=== PATIENT | male | born 1995 | race African-American/Black ===

== ENCOUNTER 2018-12-08 12:18 | Emergency (ER) | payer OTHER, SELFPAY ==
[2018-12-08] MEDS ORDERED: FENTANYL CITR 100 MCG/2 ML ONE (13:07)
[2018-12-08] MEDS ORDERED: ONDANSETRON 4 MG/2 ML VIAL ONE (13:07)
[2018-12-08] MEDS ORDERED: NA CHLORIDE 0.9% 1,000 ML ONE (13:07)
[2018-12-08 13:27] LABS: Basophils % 0.2 % (0-1.3); Hematocrit 44.6 % (39.6-49.0); Lymphocytes % 7.1 % (15.3-44.8); MPV 8.8 fL (7.6-11.3); RBC Red Blood Cell Count 5.12 M/uL (4.33-5.43)
--- NOTE | 2018-12-08 13:41 | RAD REPORT ---
EXAM DESCRIPTION: CT - Stone Protocol - 12/08/2018 1:24 pm CLINICAL HISTORY: Flank pain. ABD PAIN COMPARISON: No comparisons TECHNIQUE: Axial images were obtained without oral or IV contrast. Lack of contrast limits solid org an and vascular assessment. The [id number] spans the entirety of the system partially obscuring uppermost abdomen and lung bases. Coronal reformatted images were obtained and reviewed. All CT scans are performed using dose optimization technique as appropriate and may include automated exposure control or mA/KV adjustment according to patient size. FINDINGS: Small anterior left pneumothorax and a small amount of pneumomediastinum is seen surroundi ng the posterior mediastinum. Etiology for this finding is unclear on this study. Imaged portions of the liver and spleen show no suspicious findings on non-contrast imaging. The panc reas and adrenal glands are normal. No pathologic lymphadenopathy in the abdomen or pelvis. No urinary tract stones or obstructive uropathy. No bowel obstruction, free air, free fluid or abscess. Normal appendix noted. No significant bony abnormality. IMPRESSION: Small amount anterior left pneumothorax and posteriorly pneumomediastinum is present, et iology unclear on this abdominal CT study. Consider chest CT correlation. No acute intra- abdominal or intrapelvic abnormality detected.
[2018-12-08 13:53] LABS: ALT/SGPT 41 U/L (12-78); AST/SGOT 117 U/L (15-37); Albumin 4.6 g/dL (3.4-5.0); Alkaline Phosphatase 90 U/L (45-117); BUN Blood Urea Nitrogen 12 mg/dL (7-18); Bicarbonate 26 mmol/L (21-32); Bilirubin Direct 0.2 mg/dL (0-0.2); Bilirubin Total 0.7 mg/dL (0.2-1.0); Glucose Level 79 mg/dL (74-106); Lipase 69 U/L (73-393); Potassium 4.2 mmol/L (3.5-5.1); Protein, Total 8.5 g/dL (6.4-8.2); Sodium Level 141 mmol/L (136-145)
--- NOTE | 2018-12-08 14:50 | RAD REPORT ---
EXAM DESCRIPTION: CT - Thorax Wo Con CLINICAL HISTORY: Chest pain PAIN COMPARISON: Stone Protocol dated 12/08/2018 FINDINGS: A small pneumothorax is noted on the left estimated at 10-15% lung volume. Pneumomediastin um is present notable in the posterior mediastinum, left hilar region and extending into the base of the neck. No lung mass or lung consolidation evident. No displaced rib fracture. No aggressive rib lesion. No gross upper abdominal finding. All CT scans are performed using dose optimization technique as appropriate and may include automated exposure control or mA/KV adjustment according to patient size. IMPRESSION: Small volume pneumomediastinum and left pneumothorax as described above.
[2018-12-08] MEDS ORDERED: LEVALBUTEROL 1.25 MG/3 ML NEB ONE (15:02)
[2018-12-08] MEDS ORDERED: PIPER/TAZO/NS 3.375gm 3.375 GM/100 ML BAG ONE (15:02)
[2018-12-08] MEDS ORDERED: HYDROCODONE/CHLORPHEN 5 ML/OSYR ONE (15:02)
--- NOTE | 2018-12-08 15:02 | RAD REPORT ---
EXAM DESCRIPTION: RAD - Chest Single View - 12/08/2018 2:51 pm CLINICAL HISTORY: CHEST PAIN Chest pain. COMPARISON: No comparisons FINDINGS: Portable technique limits examination quality. Small left apical pneumothorax is seen. The lungs are otherwise clear. The heart is normal in size. N o displaced fractures. IMPRESSION: Small left apical pneumothorax.
--- NOTE | 2018-12-08 15:23 | ER ---
Nurse's Notes [facility] Name: Víctor Cheung Age: 23 yrs Sex: Male : 1995 Arrival Date: 12/08/2018 Time: 12:23 Bed 20 Private MD: Diagnosis: Pneumothorax, unspecified;Pneumomediastinum Presentation: 12/08 12:37 Presenting complaint: EMS states: SENT FROM [facility] FOR LUQ PAIN AND N/V. Transition bp of care: [facility]. Onset of symptoms was December 08, 2018 at 05:00. Risk Assessment: Do you want to hurt yourself or someone else? Patient reports no desire to harm self or others. Initial Sepsis Screen: Does the patient meet any 2 criteria? No. Patient's initial sepsis screen is negative. Does the patient have a suspected source of infection? No. Patient's initial sepsis screen is negative. 12:37 Method Of Arrival: EMS: [facility] bp 12:37 Acuity: PASCALE 3 bp 12:45 Care prior to arrival: None. bp Triage Assessment: 12:40 General: Appears in no apparent distress. comfortable, Behavior is cooperative, bp appropriate for age, anxious. Pain: Complains of pain in left upper quadrant. EENT: No deficits noted. Neuro: No deficits noted. Cardiovascular: No deficits noted. Respiratory: No deficits noted. GI: Reports upper abdominal pain, nausea, vomiting. : No signs and/or symptoms were reported regarding the genitourinary system. Derm: No deficits noted. Musculoskeletal: No deficits noted. Historical: - Allergies: 12:40 CHLORINE; bp 12:40 Soy; bp 12:40 FISH PRODUCT DERIVATIVES; bp 12:40 Peanut; bp - Home Meds: 12:40 ProAir HFA inhalation inhalation [Active]; bp - PMHx: 12:40 Asthma; bp - Immunization history:: Adult Immunizations up to date. - Social history:: Smoking status: Patient/guardian denies using tobacco. - Ebola Screening: : No symptoms or risks identified at this time. Screenin:42 Abuse screen: Denies threats or abuse. Denies injuries from another. Nutritional bp screening: No deficits noted. Tuberculosis screening: No symptoms or risk factors identified. Fall Risk None identified. Assessment: 12:42 General: SEE TRIAGE NOTE. bp 14:06 Reassessment: ALL CURRENT ORDERS COMPLETED, RESULTS PENDING. bp 15:35 Reassessment: REPORT TO [facility] AT [facility], TRANSPORT PENDING. bp 16:08 Reassessment: [facility] E[place] 30 MIN. bp 17:02 Reassessment: [facility] FOR TRANSPORT. bp Vital Signs: 12:26 BP 102 / 56; Pulse 76; Resp 16; Temp 98.4(O); Pulse Ox 100% ; Weight 68.04 kg; bp 14:07 BP 106 / 56; Pulse 79; Resp 16; Pulse Ox 96% ; bp 15:36 BP 117 / 56; Pulse 92; Resp 16; Pulse Ox 100% ; bp 17:04 BP 129 / 53; Pulse 93; Resp 18; Pulse Ox 100% ; bp ED Course: 12:23 Patient arrived in ED. bp 12:25 Kimberly Rowe FNP-C is [facility]. kb 12:25 Marcelino Garcia MD is Attending Physician. kb 12:36 Suhail Lanier, GALILEO is Primary Nurse. bp 12:38 Triage completed. bp 12:40 Arm band placed on. bp 12:42 Patient has correct armband on for positive identification. Bed in low position. Call bp light in reach. Side rails up X2. Adult w/ patient. Security at bedside. 12:55 Radiology exam delayed due to lab results not completed at this time. (BUN/Creatinine). kw1 13:23 CT completed. Patient tolerated procedure well. Patient moved back from CT. bq 13:24 Stone Protocol In Process Unspecified. EDMS 13:46 Inserted saline lock: 22 gauge in right antecubital area, using aseptic technique. lt1 14:41 CT Chest Wo Con In Process Unspecified. EDMS 14:51 Chest Single View XRAY In Process Unspecified. EDMS 17:04 No provider procedures requiring assistance completed. Patient transferred, IV remains bp in place. Administered Medications: 13:10 Drug: NS 0.9% 1000 ml Route: IV; Rate: 1000 ml; Site: right forearm; bp 16:10 Follow up: IV Status: Completed infusion; IV Intake: 1000ml bp 13:10 Drug: Zofran 4 mg Route: IVP; Site: right forearm; bp 14:24 Follow up: Response: No adverse reaction bp 13:10 Drug: fentaNYL (PF) 25 mcg Route: IVP; Site: right forearm; bp 14:24 Follow up: Response: Pain is decreased bp 14:52 CANCELLED (Other Intervention Used): DuoNeb (3:1) (2.5 mg - 0.5 mg) 3 ml Nebulizer once kb 15:00 Drug: Zosyn 3.375 grams Route: IVPB; Infused Over: 60 mins; Site: right antecubital; bp 16:08 Follow up: IV Status: Completed infusion; IV Intake: 100ml bp 15:00 Drug: Xopenex 1.25 mg Route: Inhalation; bp 15:00 Drug: Tussionex Pennkinetic ER 5 ml Route: PO; bp 16:09 Follow up: Response: Pain is decreased bp Intake: 16:08 IV: 100ml; Total: 100ml. bp 16:10 IV: 1000ml; Total: 1100ml. bp Outcome: 15:23 ER care complete, transfer ordered by . rn 17:04 Transferred by ground EMS to [facility], Transfer form bp completed. 17:04 Condition: stable 17:04 Instructed on the need for transfer. 17:05 Patient left the ED. bp Signatures: Dispatcher [employer] EDMS Kimberly Rowe, LIVESTOCK HAULIER-C LIVESTOCK HAULIER-Ckb Rehana Emery Roman, MD MD rn Peltier, Brian, RN RN bp Wilhelm, Kimberly kw1 Lani May lt1 Corrections: (The following items were deleted from the chart) 12:37 12:26 BP 102 / 56; Pulse 76bpm; Resp 16bpm; Pulse Ox 100%; Temp 98.4F Oral; lt1 bp
--- NOTE | 2018-12-08 15:23 | EDPHYS ---
Physician Documentation [facility] Name: Víctor Cheung Age: 23 yrs Sex: Male : 1995 Arrival Date: 12/08/2018 Time: 12:23 Bed 20 Private MD: ED Physician Marcelino Garcia HPI: 12/08 13:33 This 23 yrs old Black Male presents to ER via EMS with complaints of left side pain. kb 13:33 The patient presents with abdominal pain in the left upper quadrant. Onset: The kb symptoms/episode began/occurred this morning. The symptoms do not radiate. Associated signs and symptoms: Pertinent positives: nausea and vomiting. The symptoms are described as constant. Modifying factors: The symptoms are alleviated by nothing, the symptoms are aggravated by pressure. Severity of pain: At its worst the pain was moderate in the emergency department the pain is unchanged. The patient has not experienced similar symptoms in the past. The patient has not recently seen a physician. Pt reports he began vomiting at 0500. Started having abd pain about 30 minutes after vomiting. . Historical: - Allergies: 12:40 CHLORINE; bp 12:40 Soy; bp 12:40 FISH PRODUCT DERIVATIVES; bp 12:40 Peanut; bp - Home Meds: 12:40 ProAir HFA inhalation inhalation [Active]; bp - PMHx: 12:40 Asthma; bp - Immunization history:: Adult Immunizations up to date. - Social history:: Smoking status: Patient/guardian denies using tobacco. - Ebola Screening: : No symptoms or risks identified at this time. ROS: 13:32 Constitutional: Negative for fever, chills, and weight loss, ENT: Negative for injury, kb pain, and discharge, Neck: Negative for injury, pain, and swelling, Cardiovascular: Negative for chest pain, palpitations, and edema, Respiratory: Negative for shortness of breath, cough, wheezing, and pleuritic chest pain, Back: Negative for injury and pain, MS/Extremity: Negative for injury and deformity, Skin: Negative for injury, rash, and discoloration, Neuro: Negative for headache, weakness, numbness, tingling, and seizure. 13:32 Abdomen/GI: Positive for abdominal pain, nausea and vomiting, Negative for diarrhea, constipation, abdominal cramps, abdominal distension, anorexia. Exam: 13:32 Constitutional: This is a well developed, well nourished patient who is awake, alert, kb and in no acute distress. Head/Face: Normocephalic, atraumatic. ENT: Nares patent. No nasal discharge, no septal abnormalities noted. Tympanic membranes are normal and external auditory canals are clear. Oropharynx with no redness, swelling, or masses, exudates, or evidence of obstruction, uvula midline. Mucous membranes moist. Neck: Trachea midline, no thyromegaly or masses palpated, and no cervical lymphadenopathy. Supple, full range of motion without nuchal rigidity, or vertebral point tenderness. No Meningismus. Chest/axilla: Normal chest wall appearance and motion. Nontender with no deformity. No lesions are appreciated. Cardiovascular: Regular rate and rhythm with a normal S1 and S2. No gallops, murmurs, or rubs. Normal PMI, no JVD. No pulse deficits. Skin: Warm, dry with normal turgor. Normal color with no rashes, no lesions, and no evidence of cellulitis. MS/ Extremity: Pulses equal, no cyanosis. Neurovascular intact. Full, normal range of motion. Neuro: Awake and alert, GCS 15, oriented to person, place, time, and situation. Cranial nerves II-XII grossly intact. Motor strength 5/5 in all extremities. Sensory grossly intact. Cerebellar exam normal. Normal gait. 13:32 Abdomen/GI: Inspection: abdomen appears normal, Bowel sounds: normal, in all quadrants, Palpation: soft, in all quadrants, moderate abdominal tenderness, in the left upper quadrant. 13:32 Respiratory: the patient does not display signs of respiratory distress, Respirations: kb normal, Breath sounds: rhonchi, that are moderate, are heard in the right upper lobe, right middle lobe, left lower lobe, right lower lobe, right posterior upper lobe, left posterior lower lobe, right posterior middle lobe and right posterior lower lobe. Vital Signs: 12:26 BP 102 / 56; Pulse 76; Resp 16; Temp 98.4(O); Pulse Ox 100% ; Weight 68.04 kg; bp 14:07 BP 106 / 56; Pulse 79; Resp 16; Pulse Ox 96% ; bp 15:36 BP 117 / 56; Pulse 92; Resp 16; Pulse Ox 100% ; bp 17:04 BP 129 / 53; Pulse 93; Resp 18; Pulse Ox 100% ; bp MDM: 12:25 Patient medically screened. kb 13:32 Data reviewed: vital signs, nurses notes. Data interpreted: Pulse oximetry: on room air kb is 100 %. Interpretation: normal. 15:10 Counseling: I had a detailed discussion with the patient and/or guardian regarding: the kb historical points, exam findings, and any diagnostic results supporting the discharge/admit diagnosis, lab results, radiology results, the need to transfer to another facility, for higher level of care, [facility] does not immediately have the required specialist. 12/08 12:40 Order name: Basic Metabolic Panel; Complete Time: 13:59 kb 12/08 12:40 Order name: CBC with Diff; Complete Time: 13:28 kb 12/08 12:40 Order name: Hepatic Function; Complete Time: 13:59 kb 12/08 12:40 Order name: Lipase; Complete Time: 13:59 kb 12/08 13:08 Order name: Stone Protocol; Complete Time: 13:49 EDMS 12/08 13:50 Order name: Chest Single View XRAY; Complete Time: 15:10 kb 12/08 14:19 Order name: CT Chest Wo Con; Complete Time: 14:59 mt 12/08 12:40 Order name: IV Saline Lock; Complete Time: 13:46 kb 12/08 12:40 Order name: Labs collected and sent; Complete Time: 13:46 kb 12/08 14:28 Order name: Oxygen; Complete Time: 15:07 kb Administered Medications: 13:10 Drug: NS 0.9% 1000 ml Route: IV; Rate: 1000 ml; Site: right forearm; bp 16:10 Follow up: IV Status: Completed infusion; IV Intake: 1000ml bp 13:10 Drug: Zofran 4 mg Route: IVP; Site: right forearm; bp 14:24 Follow up: Response: No adverse reaction bp 13:10 Drug: fentaNYL (PF) 25 mcg Route: IVP; Site: right forearm; bp 14:24 Follow up: Response: Pain is decreased bp 14:52 CANCELLED (Other Intervention Used): DuoNeb (3:1) (2.5 mg - 0.5 mg) 3 ml Nebulizer once kb 15:00 Drug: Zosyn 3.375 grams Route: IVPB; Infused Over: 60 mins; Site: right antecubital; bp 16:08 Follow up: IV Status: Completed infusion; IV Intake: 100ml bp 15:00 Drug: Xopenex 1.25 mg Route: Inhalation; bp 15:00 Drug: Tussionex Pennkinetic ER 5 ml Route: PO; bp 16:09 Follow up: Response: Pain is decreased bp Disposition: 15:22 Co-signature as Attending Physician, Marcelino Garcia MD. rn Disposition: 12/08/18 15:23 Transfer ordered to [facility]. Diagnosis are Pneumothorax, unspecified, Pneumomediastinum. - Reason for transfer: Higher level of care. - Accepting physician is Dr. Mayer. - Condition is Stable. - Problem is new. - Symptoms are unchanged. Signatures: Dispatcher [employer] EDRI Kimberly Rowe, JULIO CÉSAR-Skylar EVENT MANAGER-Marcelino Eagle MD MD rn Peltier, Brian, RN RN bp Corrections: (The following items were deleted from the chart) 13:08 12:41 Abdomen Pelvis W Con+CT.RAD.BRZ ordered. [facility] 13:53 13:32 Constitutional: This is a well developed, well nourished patient who is awake, kb alert, and in no acute distress. Head/Face: Normocephalic, atraumatic. ENT: Nares patent. No nasal discharge, no septal abnormalities noted. Tympanic membranes are normal and external auditory canals are clear. Oropharynx with no redness, swelling, or masses, exudates, or evidence of obstruction, uvula midline. Mucous membranes moist. Neck: Trachea midline, no thyromegaly or masses palpated, and no cervical lymphadenopathy. Supple, full range of motion without nuchal rigidity, or vertebral point tenderness. No Meningismus. Chest/axilla: Normal chest wall appearance and motion. Nontender with no deformity. No lesions are appreciated. Cardiovascular: Regular rate and rhythm with a normal S1 and S2. No gallops, murmurs, or rubs. Normal PMI, no JVD. No pulse deficits. Respiratory: Lungs have equal breath sounds bilaterally, clear to auscultation and percussion. No rales, rhonchi or wheezes noted. No increased work of breathing, no retractions or nasal flaring. Skin: Warm, dry with normal turgor. Normal color with no rashes, no lesions, and no evidence of cellulitis. MS/ Extremity: Pulses equal, no cyanosis. Neurovascular intact. Full, normal range of motion. Neuro: Awake and alert, GCS 15, oriented to person, place, time, and situation. Cranial nerves II-XII grossly intact. Motor strength 5/5 in all extremities. Sensory grossly intact. Cerebellar exam normal. Normal gait. kb 14:52 14:28 DuoNeb (3:1) (2.5 mg - 0.5 mg) 3 ml Nebulizer once ordered. kb kb 15:40 15:23 12/08/2018 15:23 Transfer ordered to [facility]. Diagnosis is Pneumothorax, kb unspecified; Pneumomediastinum. Reason for transfer: Higher level of care. Accepting physician is . Condition is Stable. Problem is new. Symptoms are unchanged. rn 17:05 15:40 12/08/2018 15:23 Transfer ordered to [facility]. Diagnosis is Pneumothorax, bp unspecified; Pneumomediastinum. Reason for transfer: Higher level of care. Accepting physician is Dr. Mayer. Condition is Stable. Problem is new. Symptoms are unchanged. kb
[2018-12-08 17:13] VITALS: TEMP 98.4
[2018-12-08 17:16] VITALS: O2SAT 100
[2018-12-08 17:17] VITALS: BP 129/53
== END 2018-12-08 17:05 | disposition short-term general hospital (02) ==
LOC: ER 12:18
DX: J93.9 Pneumothorax, unspecified (principal); J98.2 Interstitial emphysema; J45.909 Unspecified asthma, uncomplicated; Z91.010 Allergy to peanuts; Z91.013 Allergy to seafood; Z91.018 Allergy to other foods; Z91.048 Other nonmedicinal substance allergy status
CPT/HCPCS: 96365; 96361; 85025; 80048; 36415; 80076; 83690; 71250; 76377; 74176; 71045; 96375; 99285; J2405; J2543; J3010; J7030